=== PATIENT | female | born 1990 | race African-American/Black ===

== ENCOUNTER 2021-02-01 14:06 | Emergency (ER) | payer OTHER ==
[2021-02-01] MEDS ORDERED: Ketorolac Tromethamine 30 MG/ML VIAL ONE (16:02)
== END 2021-02-01 16:05 | disposition home or self-care (01) ==
LOC: ERS 14:06
DX: S83.92XA Sprain of unspecified site of left knee, initial encounter (principal); X58.XXXA Exposure to other specified factors, initial encounter
CPT/HCPCS: 96372; J1885